=== PATIENT | female | born 1990 | race Caucasian/White ===

== ENCOUNTER 2025-05-26 13:54 | Emergency (ER) | payer BC ==
[2025-05-26 14:03] VITALS: TEMP 97.9
[2025-05-26 14:31] LABS: Hematocrit 34.8 % (34.1-44.9); Hemoglobin 10.9 g/dL (11.2-15.7); Mean Corpuscular Hemoglobin 24.5 pg (25.6-32.2); Mean Corpuscular Hgb Concent. 31.3 g/dL (32.2-35.5); Platelet Count 420 x10^3/uL (182-369); Red Blood Count 4.44 x10^6/uL (3.93-5.22); White Blood Count 10.2 x10^3/uL (3.98-10.04)
[2025-05-26 14:36] LABS: Calcium 9.2 mg/dL (8.4-10.2); Carbon Dioxide 23.0 mmol/L (22-30); Creatinine 1 0.99 mg/dL (0.52-1.04); EST GLOMERULAR FILTRATION RATE 76.3 ML/MIN; Glucose 91.0 mg/dL (74-106); Potassium 3.7 mmol/L (3.5-5.1)
--- NOTE | 2025-05-26 14:44 | ERPHSYRPT ---
- History of Present Illness Time Seen by Provider: 05/26/25 13:55 Source: patient Exam Limitations: no limitations Patient Subjective Stated Complaint: Pt. states, "I had a heart cath last week at [place], it was clear. 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 Today I woke up at 7am with shortness of breath and intermittent chest pain." Triage Nursing Assessment: Pt arrives via W/C, she is alert and oriented x3, Skin P/W/D, Resp even unlabored, No edema noted. Transfered to bed with no assist. Physician History: Patient comes to the emergency room due to complaints of shortness of breath going on for 2-1/[address] Ramon of cardiology at [facility] had a cardiac catheterization done just recently which was negative for any findings. Patient has been worked up multiple times for the shortness of breath and patient states that nobody can figure out what is going on with her. Patient feels short of breath at this time no fever no chills no chest pain shortness of breath is all the time Timing/Duration: other (months) Possible Cause: chronic episodes Modifying Factors: Improves With: activity Associated Symptoms: denies symptoms Hx Tetanus, Diphtheria Vaccination/Date Given: Yes Hx Influenza Vaccination/Date Given: No Hx Pneumococcal Vaccination/Date Given: No Immunizations Up to Date: No Travel Risk - International Travel Have you traveled outside of the country in past 3 weeks: No - Emerging Infectious Disease Are you exhibiting symptoms associated with any current EIDs: No - Review of Systems Constitutional: No Fever, No Chills Eyes: No Symptoms Ears, Nose, & Throat: No Symptoms Respiratory: Dyspnea on Exertion ([place]), No Cough, No Dyspnea Cardiac: No Chest Pain, No Edema, No Syncope Abdominal/Gastrointestinal: No Abdominal Pain, No Nausea, No Vomiting, No Diarrhea Neurological: No Dizziness, No Focal Weakness, No Sensory Changes Psychological: Anxiety - Past Medical History Pertinent Past Medical History: Yes Other Medical History: Obesity, DDD Back, Cardiac Cath no angioplasty - Past Surgical History Past Surgical History: Yes Gastrointestinal: Cholecystectomy Female Surgical History: Tubal Ligation - Female History Hx Last Menstrual Period: Current Hx Now: No - Social History Smoking Status: Never smoker Exposure to second hand smoke: No Drug Use: none - Social Determinants of Health Will the patient participate in the screening: Declined to provide - Nursing Vital Signs Nursing Vital Signs: Initial Vital Signs Temperature 97.9 F 05/26/25 13:54 Pulse Rate 68 05/26/25 13:54 Respiratory Rate 22 05/26/25 13:54 Blood Pressure 137/70 05/26/25 13:54 O2 Sat by Pulse Oximetry 100 05/26/25 13:54 Pain Scale Pain Intensity 0 - Physical Exam General Appearance: no apparent distress, alert, obese Eye Exam: PERRL/EOMI Respiratory Exam: normal breath sounds Cardiovascular/Chest Exam: normal heart sounds, regular rate/rhythm Abdominal/Gastrointestinal Exam: soft Neurologic Exam: alert, oriented x 3 Skin Exam: normal color SpO2 Interpretation: normal SpO2: 100 O2 Delivery: Room Air - Radiology Exams Chest X-ray Interpretation: Interpreted by me, Negative, No Pneumonia, No Pneumothorax, No Infiltrates Ordered Tests: Active Orders 24 hr Category Date Time Status CHEST 1 VIEW (PORTABLE) Stat Exams 05/26/25 14:28 Completed BMP Stat Lab 05/26/25 14:15 Completed CBC Stat Lab 05/26/25 14:15 Completed UA W/RFX UR CULTURE Stat Lab 05/26/25 14:29 Completed Lab/Rad Data: Laboratory Result Diagrams 05/26/25 14:15 05/26/25 14:15 Laboratory Results 05/26/25 05/26/25 05/26/25 Range/Units 14:29 14:15 14:15 WBC 10.2 H (3.98-10.04) x10^3/uL RBC 4.44 (3.93-5.22) x10^6/uL Hgb 10.9 L (11.2-15.7) g/dL Hct 34.8 (34.1-44.9) % MCV 78.4 L (79.4-94.8) fL MCH 24.5 L (25.6-32.2) pg MCHC 31.3 L (32.2-35.5) g/dL RDW 15.9 H (11.7-14.4) % Plt Count 420 H (182-369) x10^3/uL MPV 10.4 (9.4-12.3) fL Sodium 136 (135-145) mmol/L Potassium 3.7 (3.5-5.1) mmol/L Chloride 105 (98-107) mmol/L Carbon Dioxide 23 (22-30) mmol/L Anion Gap 11.7 (5-15) MEQ/L BUN 13 (7-17) mg/dL Creatinine 0.99 (0.52-1.04) mg/dL Estimated GFR 76.3 ML/MIN Glucose 91 (74-106) mg/dL Calcium 9.2 (8.4-10.2) mg/dL Urine Color Yellow (Yellow) Urine Appearance Clear (Clear) Urine pH 7.0 (4.6-8.0) Ur Specific Wheeler <=1.005 (1.005-1.030) Urine Protein Negative (Negative) Urine Glucose (UA) Negative (Negative) mg/dL Urine Ketones Trace A (Negative) Urine Blood Large A (Negative) Urine Nitrite Negative (Negative) Urine Bilirubin Negative (Negative) Urine Urobilinogen 0.2 (0.2) mg/dL Ur Leukocyte Esterase Negative (Negative) U Hyaline Cast (Auto) NONE SEEN (0-2) /LPF Urine Microscopic RBC 3-5 (0-5) /HPF Urine Microscopic WBC 0-2 (0-5) /HPF Ur Epithelial Cells None Seen (None Seen) /HPF Urine Bacteria None Seen (None Seen) /HPF Urine Culture Reflexed NO (NO) - Progress Air Movement: good Progress Note: 05/26/25 14:42 Patient has been dealing with the shortness of breath for months patient is not hypoxic or tachypneic is afebrile lungs are clear on exam patient has no chest pain patient just had a cardiac catheterization done with no findings and no stenosis of the coronary vessels. I will be doing blood work and a chest x-ray on the patient to rule out any other causes of her shortness of breath. At this time I believe the patient's shortness of breath is secondary to being overweight and causing her to have obstructive sleep apnea as well I would advise the patient to follow-up with primary care for further evaluation management and at this time does not require any other testing as she is stable otherwise Blood Culture(s) Obtained: No Antibiotics given: No - Departure Clinical Impression: Shortness of breath Condition: Good Critical Care Time: No Referrals: GUILLERMINA BRAR FNP [NON-STAFF PHY W/O PRIVILEGES, UNKNOWN] - Follow up/PCP as directed Instructions: Shortness of Breath (Dyspnea) (DC)
[2025-05-26 14:47] LABS: Glucose, Urine Negative (Negative); Protein,Urine Dip Negative (Negative); WBC 0-2 /HPF (0-5)
--- NOTE | 2025-05-26 14:54 | XRAY ---
Indication: Short of breath. Comparison: None Portable chest demonstrates normal heart, lungs, and bony thorax.
[2025-05-26 15:06] VITALS: BP 114/73; PULSE 60; RESP 16; O2SAT 98
== END 2025-05-26 15:06 | disposition home or self-care (01) ==
LOC: ED 13:54 → MERGE 13:54 → ED 15:06
DX: R06.02 Shortness of breath (principal)